=== PATIENT | female | born 2000 | race Caucasian/White ===

== ENCOUNTER 2021-07-01 19:53 | Emergency (ER) | payer OTHER, MEDICAID ==
[~2021-07-01] VITALS: Ht 170.2 cm; Wt 155.1 kg
[2021-07-01 20:40] VITALS: BP 157/89
== END 2021-07-01 23:56 | disposition left against medical advice (07) ==
LOC: M.ERS 19:53
DX: M25.571 Pain in right ankle and joints of right foot (principal); Z32.00 Encounter for pregnancy test, result unknown; Z53.21 Procedure and treatment not carried out due to patient leaving prior to being seen by health care provider

== ENCOUNTER 2021-07-05 18:36 | Emergency (ER) | payer OTHER, MEDICAID ==
[~2021-07-05] VITALS: Ht 170.2 cm; Wt 151.5 kg
[2021-07-05 21:32] VITALS: BP 132/64
== END 2021-07-05 21:33 | disposition home or self-care (01) ==
LOC: M.ERS 18:36
DX: S63.501A Unspecified sprain of right wrist, initial encounter (principal); S93.401A Sprain of unspecified ligament of right ankle, initial encounter; J02.9 Acute pharyngitis, unspecified; Z88.0 Allergy status to penicillin; Z88.1 Allergy status to other antibiotic agents; W19.XXXA Unspecified fall, initial encounter; Y93.89 Activity, other specified; Y92.89 Other specified places as the place of occurrence of the external cause; Y99.8 Other external cause status